=== PATIENT | female | born 1990 | race Caucasian/White ===

== ENCOUNTER → 2020-04-22 | Outpatient (CLI) | payer OTHER ==
[~2020-04-22] MED LIST: BENTYL 10MG CAP10 MG PO; IBUPROFEN600 MG PO; LORTAB 5-325 M1 EACH PO; PROTONIX40 MG PO; SYNTHROID25 MCG PO; TRICOR145 MG PO; ZOFRAN4 MG PO
[2020-04-22 12:11] LABS: HEMOGLOBIN 11.8 gm/dl (12.3-15.3); RED BLOOD COUNT 4.43 M/UL (4.00-5.10); WHITE BLOOD COUNT 4.9 K/UL (4.5-11.0)
[2020-04-22 12:42] LABS: BUN/CREATININE RATIO 9 (0-10)
== END ==
LOC: LAB 11:08
PROVIDERS: Nurse Practitioner Family
DX: N92.6 Irregular menstruation, unspecified (principal); R30.0 Dysuria; E03.9 Hypothyroidism, unspecified
CPT/HCPCS: 36415; 80053; 81001; 84439; 84443; 84702; 85025; 87077; 87086; 87186

== ENCOUNTER → 2020-05-15 | Outpatient (CLI) | payer OTHER | LOC: LAB 10:50 | DX: R73.09 Other abnormal glucose (principal) | CPT/HCPCS: 36415; 82947; 83036 ==

== ENCOUNTER → 2020-08-06 | Outpatient (CLI) | payer OTHER | LOC: EXRD 13:00 | DX: R22.1 Localized swelling, mass and lump, neck (principal) | CPT/HCPCS: 76536 ==

== ENCOUNTER → 2020-09-04 | Outpatient (CLI) | payer OTHER | LOC: US 10:00 | DX: E06.3 Autoimmune thyroiditis (principal) | CPT/HCPCS: 36415; 85049; 85610; 85730 ==

== ENCOUNTER → 2020-09-16 | Outpatient (CLI) | payer OTHER | LOC: CT 08-31 08:00 | DX: R22.1 Localized swelling, mass and lump, neck (principal) | CPT/HCPCS: 36415; 70491; 82565; Q9967 ==

== ENCOUNTER 2021-06-16 12:26 | Emergency (ER) | payer OTHER ==
[2021-06-16 14:10] LABS: HEMOGLOBIN 10.8 gm/dl (12.3-15.3); RED BLOOD COUNT 4.37 M/UL (4.00-5.10); WHITE BLOOD COUNT 4.7 K/UL (4.5-11.0)
[2021-06-16 14:34] LABS: BUN/CREATININE RATIO 11 (0-10)
[2021-06-16] MEDS ORDERED: CEPHALEXIN500 M1 PO (20:58)
== END 2021-06-16 17:22 | disposition home or self-care (01) ==
LOC: ER1 12:26
PROVIDERS: Physician Assistant
DX: N93.9 Abnormal uterine and vaginal bleeding, unspecified (principal); D64.9 Anemia, unspecified; N39.0 Urinary tract infection, site not specified; E11.9 Type 2 diabetes mellitus without complications; I10 Essential (primary) hypertension; E03.9 Hypothyroidism, unspecified; F17.200 Nicotine dependence, unspecified, uncomplicated; Z90.89 Acquired absence of other organs; Z79.899 Other long term (current) drug therapy; Z79.84 Long term (current) use of oral hypoglycemic drugs
CPT/HCPCS: 76830; 80053; 81001; 84702; 85025; 99284

== ENCOUNTER → 2021-07-13 | Outpatient (CLI) | payer OTHER ==
[~2021-07-13] MED LIST changes: +CEPHALEXIN500 M1 PO
== END ==
LOC: KOH-I 07-05 15:00
DX: D44.0 Neoplasm of uncertain behavior of thyroid gland (principal)
CPT/HCPCS: 76536

== ENCOUNTER → 2021-09-24 | Outpatient (CLI) | payer OTHER | LOC: CT 09-13 08:30 | DX: R59.1 Generalized enlarged lymph nodes (principal) | CPT/HCPCS: 36415; 70491; 82565; 84520; Q9967 ==